=== PATIENT | male | born 1980 | race African-American/Black ===

== ENCOUNTER 2017-01-14 14:09 | Emergency (ER) | payer MEDICAID ==
[~2017-01-14] VITALS: Ht 180.3 cm; Wt 85.0 kg
[2017-01-14] MEDS ORDERED: KETOROLAC 30MG/ML VIAL IV ONE (16:00)
[2017-01-14 18:10] VITALS: BP 122/76
== END 2017-01-14 18:10 | disposition home or self-care (01) ==
LOC: ER 15:00
DX: S09.8XXA Other specified injuries of head, initial encounter (principal); Y93.67 Activity, basketball
CPT/HCPCS: 70450; 93005; 96374; 99284; J1885; Z7610